=== PATIENT | female | born 1950 | race Caucasian/White ===

== ENCOUNTER 2021-06-19 14:40 | Emergency (ER) | payer MEDICARE, OTHER ==
[2021-06-19] MEDS ORDERED: Meclizine 25 MG Tab PO ONE (14:48)
[2021-06-19] MEDS ORDERED: Ondansetron 4 MG Tab.DIS PO ONE (14:49)
[2021-06-19 14:52] VITALS: BP 127/70; PULSE 76
[2021-06-19] MEDS ORDERED: Promethazine 25 MG/ML SDV IM ONE (15:28)
[2021-06-19 15:32] LABS: ANION GAP 8.1 meq/L (7-15); CHLORIDE,CL 106 mmol/L (98-107); SODIUM,NA 141 mmol/L (136-145)
[2021-06-19] MEDS ORDERED: Sodium Chloride 0.9% 500 ML IV SCH (16:00)
[2021-06-19] MEDS ORDERED: Sodium Chloride 0.9% 10 ML Syringe FLUSH PRN (16:04)
--- NOTE | 2021-06-19 16:53 | EDM.PDOC ---
ED HPI GENERAL MEDICAL PROBLEM - General Chief Complaint: General Stated Complaint: dizzy Time Seen by Provider: 06/19/21 15:10 Source of Information: Reports: Patient History Limitations: Reports: No Limitations - History of Present Illness INITIAL COMMENTS - FREE TEXT/NARRATIVE: Patient comes in with complaint of vertigo. Has had it in the past (not recently) but never this severe. Was seen by PCP yesterday who recommended Flonase. Also went to chiropractor to see if adjusting neck would help. Nothing has improved the vertigo. Worse this morning. Now has nausea and emesis with attacks. Denies other acute changes during ROS. No recent trauma/head injury/med changes/new supplements/illness. - Related Data Allergies Allergy/AdvReac Type Severity Reaction Status Date / Time Influenza Virus Vaccines Allergy Nausea and Verified 06/19/21 14:42 Vomiting Sulfa (Sulfonamide Allergy Hives Verified 06/19/21 14:42 Antibiotics) Home Meds: Home Meds ALPRAZolam [Alprazolam] 0.5 mg PO Q6HR PRN 03/09/16 [History] Aspirin [Ecotrin EC] 81 mg PO BEDTIME 03/09/16 [History] Blood Sugar Diagnostic [Onetouch Ultra Test Strip] 1 ea MISC DAILY 03/09/16 [History] Clopidogrel Bisulfate [Clopidogrel] 75 mg PO BEDTIME 03/09/16 [History] Lisinopril [Prinivil] 2.5 mg PO BEDTIME 03/09/16 [History] Metoprolol Succinate [Toprol XL 50mg] 50 mg PO BEDTIME 03/09/16 [History] Cyclobenzaprine [Flexeril] 10 mg PO TID PRN 04/16/16 [History] Ergocalciferol (Vitamin D2) [Vitamin D] 400 unit PO DAILY 04/16/16 [History] Multivitamin [Multi-Vitamin Daily] 1 each PO DAILY 04/16/16 [History] Naproxen 500 mg PO BID PRN 04/16/16 [History] RABEprazole Sodium [Aciphex] 20 mg PO BEDTIME 04/16/16 [History] atorvaSTATin [Lipitor] 80 mg PO BEDTIME 04/16/16 [History] Meclizine [Antivert] 25 mg PO Q6H PRN #40 tab 06/19/21 [Rx] Promethazine [Phenergan] 25 mg PO Q6H PRN #20 tab 06/19/21 [Rx] Past Medical History HEENT History: Reports: Allergic Rhinitis, Cataract, Impaired Vision, Other (See Below) Other HEENT History: start of the cataract, wears glasses Cardiovascular History: Reports: CAD, High Cholesterol, Hypertension, UT, Stents, Other (See Below) Other Cardiovascular History: UT in 2009 with PTCA/stent x3 at [facility] Respiratory History: Reports: None Gastrointestinal History: Reports: Chronic Constipation, Gastritis, GERD, Hemorrhoids, Helicobacter Pylori, Hiatal Hernia, PUD, Other (See Below) Other Gastrointestinal History: Peptic ulcer secondary to stress at age 21 Genitourinary History: Reports: None BASE ENGINEER History: Reports: Fibroids Other BASE ENGINEER History: Menopause at age 45 Musculoskeletal History: Reports: Arthritis, Back Pain, Chronic, Fracture, Neck Pain, Chronic, Osteoarthritis, Other (See Below) Other Musculoskeletal History: Left ankle fracture in 1984 Neurological History: Reports: None Psychiatric History: Reports: Anxiety, Depression Endocrine/Metabolic History: Reports: Diabetes, Type II, Other (See Below) Other Endocrine/Metabolic History: AODM-diet controlled Immunologic History: Reports: None Oncologic (Cancer) History: Reports: None - Infectious Disease History Infectious Disease History: Reports: C-Difficile, Chicken Pox, Measles, R heumatic Fever - Past Surgical History Head Surgeries/Procedures: Reports: None HEENT Surgical History: Reports: Adenoidectomy, Tonsillectomy, Other (See Below) Other HEENT Surgeries/Procedures: Tonsillectomy and adenoidectomy at age 6 Cardiovascular Surgical History: Reports: Coronary Artery Stent, Percutaneous Transluminal Angioplasty Other Cardiovascular Surgeries/Procedures: PTCA/stent x3 in 2009 at [facility] Respiratory Surgical History: Reports: None GI Surgical History: Reports: None Female Surgical History: Reports: None Endocrine Surgical History: Reports: None Neurological Surgical History: Reports: None Musculoskeletal Surgical History: Reports: None Oncologic Surgical History: Reports: None Dermatological Surgical History: Reports: None - Past Imaging History Past Imaging History: Reports: Mammogram (Last March 2015), Ultrasound (Pelvic ultrasound on 04/21/11) Social & Family History - Tobacco Use Tobacco Use Status *Q: Current Every Day Tobacco User Years of Tobacco use: 50 Packs/Tins Daily: 1.5 - Caffeine Use Caffeine Use: Reports: None - Recreational Drug Use Recreational Drug Use: No - Living Situation & Occupation Living situation: Reports: , with Family Occupation: Retired ED ROS GENERAL - Review of Systems Review Of Systems: See Below Constitutional: Reports: Decreased Appetite. Denies: Fever, Weakness, Night Sweats, Diaphoresis HEENT: Reports: Vertigo, Other (Feels like there is pressure/plugged in ears). Denies: Dental Pain, Ear Discharge, Ear Pain, Eye Discharge, Rhinitis, Sinus Problem, Throat Pain, Throat Swelling, Vision Change Respiratory: Reports: No Symptoms Cardiovascular: Reports: No Symptoms GI/Abdominal: Reports: Nausea, Vomiting. Denies: Abdominal Pain, Constipation, Diarrhea, Hematemesis, Hematochezia : Reports: No Symptoms Musculoskeletal: Reports: Other (no acute changes from baseline) Skin: Reports: No Symptoms Neurological: Reports: Dizziness, Difficulty Walking (dizziness). Denies: Confusion, Headache, Numbness, Paresthesia, Seizure, Syncope, Tingling, Trouble Speaking, Weakness, Change in Speech Psychiatric: Reports: No Symptoms Hematologic/Lymphatic: Reports: No Symptoms ED EXAM, GENERAL - Physical Exam Exam: See Below Exam Limited By: No Limitations General Appearance: Alert, Other (uncomfortable, holds head straight and avoids moving it) Eye Exam: Bilateral Eye: EOMI, PERRL Ears: Normal External Exam, Normal Canal, Hearing Grossly Normal, Normal TMs Ear Exam: Bilateral Ear: Auricle Normal, Canal Normal, TM normal Nose: No: Nasal Deformity, Nasal Swelling, Nasal Drainage Throat/Mouth: Normal Lips, Normal Voice, No Airway Compromise Head: Atraumatic, Normocephalic Neck: Normal Inspection, Supple, Non-Tender, Full Range of Motion Respiratory/Chest: No Respiratory Distress, Lungs Clear, Normal Breath Sounds, No Accessory Muscle Use Cardiovascular: Regular Rate, Rhythm, No Murmur GI/Abdominal: Soft, Non-Tender, No Distention (Female) Exam: Deferred Rectal (Female) Exam: Deferred Back Exam: No: CVA Tenderness (L), CVA Tenderness (R), Muscle Spasm Extremities: Normal Range of Motion, Non-Tender, Normal Capillary Refill Neurological: Alert, Oriented, CN II-XII Intact, Normal Cognition, No Motor/Sensory Deficits Psychiatric: Anxious Skin Exam: Warm, Dry, Intact, Normal Color Course - Vital Signs Last Recorded V/S: Last Vital Signs Temp 36.4 C 06/19/21 14:40 Pulse 76 06/19/21 14:40 Resp 18 06/19/21 14:40 BP 127/70 06/19/21 14:40 Pulse Ox 95 06/19/21 14:40 - Orders/Labs/Meds Orders: Active Orders 24 hr Category Date Time Status Consult to Physical Therapy [PT Evaluation and Cons 06/19/21 15:36 Active Treatment] [CONS] Routine Head wo Cont [CT] Stat Exams 06/19/21 15:33 Ordered Sodium Chloride 0.9% [Normal Saline] 500 ml Med 06/19/21 16:00 Active IV .BOLUS Sodium Chloride 0.9% [Saline Flush] Med 06/19/21 16:04 Active 10 ml FLUSH ASDIRECTED PRN Medication Orders Sodium Chloride (Normal Saline) 500 mls @ 500 mls/hr IV .BOLUS KIRTI Last Admin: 06/19/21 16:05 Dose: 500 mls/hr Documented by: LIAM Sodium Chloride (Sodium Chloride 0.9% 10 Ml Syringe) 10 ml FLUSH ASDIRECTED PRN PRN Reason: TKO Last Admin: 06/19/21 16:04 Dose: 10 ml Documented by: LIAM Labs: Laboratory Tests 06/19/21 06/19/21 06/19/21 Range/Units 15:03 15:03 15:30 WBC 8.3 (4.0-10.2) K/uL RBC 5.16 H (3.77-5.09) M/uL Hgb 15.7 H (11.7-15.5) g/dL Hct 48.0 H (34.0-46.0) % MCV 93.0 (84.0-98.0) fL MCH 30.4 (28.2-33.3) pg MCHC 32.7 (31.7-36.0) g/dL RDW 14.2 H (11.2-14.1) % Plt Count 255 (150-350) K/uL Neut % (Auto) 66.6 (45.0-80.0) % Lymph % (Auto) 25.1 (10.0-50.0) % [place] % (Auto) 5.6 (2.0-14.0) % Eos % (Auto) 2.3 (0.0-5.0) % Baso % (Auto) 0.4 (0.0-2.0) % Neut # (Auto) 5.55 (1.40-7.00) K/uL Lymph # (Auto) 2.09 (0.50-3.50) K/uL [place] # (Auto) 0.47 (0.00-1.00) K/uL Eos # (Auto) 0.19 (0.00-0.50) K/uL Baso # (Auto) 0.03 (0.00-0.20) K/uL Sodium 141 (136-145) mmol/L Potassium 4.0 (3.5-5.1) mmol/L Chloride 106 (98-107) mmol/L Carbon Dioxide 26.9 (21.0-32.0) mmol/L Anion Gap 8.1 (7-15) meq/L BUN 5 L (7-18) mg/dL Creatinine 0.82 (0.51-1.17) mg/dL Est Cr Clr Drug Dosing 50.49 mL/min Estimated GFR (MDRD) > 60 mL/min Glucose 127 H (70-99) mg/dL Calcium 9.0 (8.5-10.1) mg/dL Magnesium 2.4 (1.8-2.4) mg/dL Total Bilirubin 0.3 (0.2-1.0) mg/dL AST 24 (15-37) U/L ALT 54 (12-78) U/L Alkaline Phosphatase 126 H (46-116) IU/L Total Protein 7.3 (6.4-8.2) g/dL Albumin 3.2 L (3.4-5.0) g/dL Specimen Type Urincc Urine Color Yellow Urine Appearance Clear Urine pH 7.5 (5.0-9.0) Ur Specific [place] 1.015 (1.005-1.030) Urine Protein Negative (NEGATIVE) mg/dL Urine Glucose (UA) Negative (NEGATIVE) mg/dL Urine Ketones Negative (NEGATIVE) mg/dL Urine Occult Blood Negative (NEGATIVE) Urine Nitrite Negative (NEGATIVE) Urine Bilirubin Negative (NEGATIVE) Urine Urobilinogen 0.2 (0.2-1.0) E.U./dL Ur Leukocyte Esterase Negative (NEGATIVE) Urine RBC 0-5 /HPF Urine WBC 0-5 /HPF Ur Epithelial Cells Few /LPF Urine Bacteria Few (NONE TO FEW) /HPF Meds: Medications Generic Name Dose Route Start Last Admin Trade Name Mercedes PRN Reason Stop Dose Admin Sodium Chloride 500 mls @ 500 mls/hr 06/19/21 16:00 06/19/21 16:05 Normal Saline IV 500 mls/hr .BOLUS KIRTI Administration Sodium Chloride 10 ml 06/19/21 16:04 06/19/21 16:04 Sodium Chloride 0.9% 10 Ml Syringe FLUSH 10 ml ASDIRECTED PRN Administration TKO Discontinued Medications Generic Name Dose Route Start Last Admin Trade Name Fredaniel PRN Reason Stop Dose Admin Meclizine HCl 25 mg 06/19/21 14:48 06/19/21 14:56 Meclizine 25 Mg Tab PO 06/19/21 14:49 25 mg ONETIME ONE Administration Ondansetron HCl 4 mg 06/19/21 14:49 06/19/21 14:55 Ondansetron 4 Mg Tab.Dis PO 06/19/21 14:50 4 mg ONETIME ONE Administration Promethazine HCl 25 mg 06/19/21 15:28 06/19/21 15:57 Promethazine 25 Mg/Ml Sdv IM 06/19/21 15:29 25 mg ONETIME ONE Administration - Re-Assessments/Exams Free Text/Narrative Re-Assessment/Exam: 06/19/21 17:03 unable to elicit nystagmus due to patient not wanting to move around/move head. PT contacted to perform vestibular maneuver eval and was able to elicit nystagmus. Labs requested. Patient given Meclizine and Phenergan. Some improvement noted after PT visit. Patient able to move head and neck where before she avoided any movement at all. We did discuss obtaining a baseline CT to rule out unlikely causes of severe vertigo intracranially. Patient unable to tolerate laying down and scan cancelled. Labs unremarkable. Vital signs stable. Plan at this time is to let the patient return home. Rx for Meclizine and Phenergan. Precautions reviewed. To follow up for recheck if things do not improve over the weekend or if she has sudden worsening. Patient agreeable with plan. Has cousin that can help her out at home. Departure - Departure Time of Disposition: 16:53 Disposition: Home, Self-Care 01 Condition: Good Clinical Impression: Vertigo - Discharge Information *PRESCRIPTION DRUG MONITORING PROGRAM REVIEWED*: Not Applicable *COPY OF PRESCRIPTION DRUG MONITORING REPORT IN PATIENT ANTHONY: Not Applicable Prescriptions: Meclizine [Antivert] 25 mg PO Q6H PRN #40 tab PRN Reason: Dizziness Promethazine [Phenergan] 25 mg PO Q6H PRN #20 tab PRN Reason: Nausea Instructions: Vertigo, Benign Positional Vertigo Referrals: Teri Prater PA-C [Primary Care Provider] - Forms: ED Department Discharge Additional Instructions: Take it easy and see if this improves over time/next few days. Follow up for recheck if things worsen or new neuro changes develop. Take the Meclizine for the spins and the Phenergan for the nausea. Make follow up PT appointment for further treatments. Sepsis Event Note (ED) - Focused Exam Vital Signs: Vital Signs Temp Pulse Resp BP Pulse Ox 06/19/21 14:40 36.4 C 76 18 127/70 95 - My Orders Last 24 Hours: My Active Orders 06/19/21 15:33 Head wo Cont [CT] Stat 06/19/21 15:36 Consult to Physical Therapy [PT Evaluation and Treatment] [CONS] Routine 06/19/21 16:00 Sodium Chloride 0.9% [Normal Saline] 500 ml IV .BOLUS 06/19/21 16:04 Sodium Chloride 0.9% [Saline Flush] 10 ml FLUSH ASDIRECTED PRN - Assessment/Plan Last 24 Hours: My Active Orders 06/19/21 15:33 Head wo Cont [CT] Stat 06/19/21 15:36 Consult to Physical Therapy [PT Evaluation and Treatment] [CONS] Routine 06/19/21 16:00 Sodium Chloride 0.9% [Normal Saline] 500 ml IV .BOLUS 06/19/21 16:04 Sodium Chloride 0.9% [Saline Flush] 10 ml FLUSH ASDIRECTED PRN
== END 2021-06-19 18:03 | disposition home or self-care (01) ==
LOC: LL.ED 14:40
DX: R42 Dizziness and giddiness (principal); I25.10 Atherosclerotic heart disease of native coronary artery without angina pectoris; E78.00 Pure hypercholesterolemia, unspecified; I10 Essential (primary) hypertension; I25.2 Old myocardial infarction; K21.9 Gastro-esophageal reflux disease without esophagitis; E11.9 Type 2 diabetes mellitus without complications; Z95.5 Presence of coronary angioplasty implant and graft; Z88.7 Allergy status to serum and vaccine; Z72.0 Tobacco use; Z88.2 Allergy status to sulfonamides; Z79.899 Other long term (current) drug therapy; Z79.82 Long term (current) use of aspirin; Z79.02 Long term (current) use of antithrombotics/antiplatelets
CPT/HCPCS: 36415; 80053; 81001; 83735; 85025; 96372; 99284; A9270; J2550; J7040

== ENCOUNTER 2021-11-11 13:33 | Emergency (ER) | payer MEDICARE, OTHER ==
[2021-11-11] MEDS ORDERED: Sodium Chloride 0.9% 10 ML Syringe FLUSH PRN (13:41)
[2021-11-11] MEDS ORDERED: Sodium Chloride 0.9% 1,000 ML IV ONE (14:20)
[2021-11-11] MEDS ORDERED: Ondansetron 4 MG/2 ML SDV IVPUSH ONE (14:21)
[2021-11-11 14:34] LABS: CHLORIDE,CL 99 mmol/L (98-107); SODIUM,NA 135 mmol/L (136-145)
[2021-11-11 14:36] LABS: ANION GAP 11.7 meq/L (7-15)
[2021-11-11 15:26] LABS: CORONAVIRUS COVID-19 NAA NEGATIVE (NEGATIVE); RESPIRATORY SYNCYTIAL VIR NAA NEGATIVE (NEGATIVE)
[2021-11-11 15:35] VITALS: BP 139/70; PULSE 109
== END 2021-11-11 17:05 | disposition home or self-care (01) ==
LOC: LL.ED 13:33
DX: R53.83 Other fatigue (principal); R11.0 Nausea; I25.10 Atherosclerotic heart disease of native coronary artery without angina pectoris; J44.9 Chronic obstructive pulmonary disease, unspecified; E11.9 Type 2 diabetes mellitus without complications; I10 Essential (primary) hypertension; I25.2 Old myocardial infarction; K21.9 Gastro-esophageal reflux disease without esophagitis; Z95.5 Presence of coronary angioplasty implant and graft; Z88.7 Allergy status to serum and vaccine; Z88.2 Allergy status to sulfonamides; Z79.82 Long term (current) use of aspirin; Z79.02 Long term (current) use of antithrombotics/antiplatelets; Z79.899 Other long term (current) drug therapy; Z72.0 Tobacco use; Z20.822 Contact with and (suspected) exposure to COVID-19
CPT/HCPCS: 0241U; 36415; 80053; 83605; 83735; 84484; 85025; 85379; 93005; 96374; 99283; J2405; J7030

== ENCOUNTER → 2022-07-07 | Emergency (ER) | payer MEDICARE, OTHER | LOC: LL.ED 16:29 | DX: M79.622 Pain in left upper arm (principal); W01.0XXA Fall on same level from slipping, tripping and stumbling without subsequent striking against object, initial encounter | CPT/HCPCS: 73060-LT; 99283 ==

== ENCOUNTER 2022-07-20 21:18 | Emergency (ER) | payer MEDICARE, OTHER ==
[2022-07-20] MEDS ORDERED: Aspirin 81 MG Tab.Chew ONE (21:28)
[2022-07-20] MEDS ORDERED: Sodium Chloride 0.9% 10 ML Syringe FLUSH PRN (21:36)
[2022-07-20] MEDS: Nitroglycerin 0.4 MG Tab.SL ONE ×3 (21:38→22:15)
[2022-07-20] MEDS ORDERED: Heparin Sodium 5,000 Units/ML Vial IVPUSH ONE (21:58)
[2022-07-20] MEDS ORDERED: Heparin Sodium/0.45% NaCl 500 ML IV SCH (22:00)
[2022-07-20] MEDS ORDERED: Clopidogrel 75 MG Tab PO ONE (22:03)
[2022-07-20] MEDS ORDERED: Tenecteplase 50 MG Kit IV ONE (22:04)
[2022-07-20 22:10] LABS: ANION GAP 10.6 meq/L (7-15)
[2022-07-20] MEDS ORDERED: Morphine 2 MG/ML SYRINGE IVPUSH ONE (22:29)
[2022-07-20] MEDS: Ondansetron 4 MG/2 ML SDV IVPUSH ONE ×2 (22:39→22:48)
[2022-07-21 00:03] VITALS: BP 161/88; PULSE 99
== END 2022-07-20 23:00 ==
LOC: LL.ED 21:18
DX: I21.3 ST elevation (STEMI) myocardial infarction of unspecified site (principal); I25.10 Atherosclerotic heart disease of native coronary artery without angina pectoris; E78.00 Pure hypercholesterolemia, unspecified; I10 Essential (primary) hypertension; E11.9 Type 2 diabetes mellitus without complications; E66.9 Obesity, unspecified; Z68.30 Body mass index [BMI] 30.0-30.9, adult; Z88.7 Allergy status to serum and vaccine; Z88.2 Allergy status to sulfonamides; Z79.899 Other long term (current) drug therapy; Z79.82 Long term (current) use of aspirin
CPT/HCPCS: 36415; 71045; 80053; 83605; 83880; 84484; 85025; 85379; 85610; 93005; 93010; 96365; 96375; 96376; 99284; 99285-25; A9270-GY; J1644; J2270; J2405; J3101

== ENCOUNTER 2022-12-09 18:39 | Observation (INO) | payer MEDICARE, OTHER ==
[2022-12-09] MEDS ORDERED: Lactated Ringers 1,000 ML IV ONE (19:12)
[2022-12-09] MEDS ORDERED: Haloperidol Lactate 5 MG/ML SDV IVPUSH ONE (19:13)
[2022-12-09] MEDS: Sodium Chloride 0.9% 10 ML Syringe FLUSH PRN (19:30)
[2022-12-09] MEDS ORDERED: Haloperidol Lactate 5 MG/ML SDV IM ONE (19:49)
[2022-12-09 20:01] LABS: CORONAVIRUS COVID-19 NAA NEGATIVE (NEGATIVE); RESPIRATORY SYNCYTIAL VIR NAA NEGATIVE (NEGATIVE)
[2022-12-09] MEDS ORDERED: oxyCODONE 5 MG Tab PO ONE (20:41)
[2022-12-09 21:16] LABS: CHLORIDE,CL 96 mmol/L (98-107); SODIUM,NA 131 mmol/L (136-145)
[2022-12-09 21:17] LABS: ANION GAP 10.3 meq/L (7-15); ESTIMATED GFR 78 mL/min (>=60)
[2022-12-09] MEDS ORDERED: Polyethylene Glycol 3350 Powder 17 GM Packet PO PRN (21:59)
[2022-12-09] MEDS ORDERED: Morphine 2 MG/ML SYRINGE IVPUSH PRN (21:59)
[2022-12-09] MEDS ORDERED: oxyCODONE 5 MG Tab PO PRN (21:59)
[2022-12-09] MEDS ORDERED: Acetaminophen 500 MG Tab PO PRN (21:59)
[2022-12-09] MEDS ORDERED: Haloperidol Lactate 5 MG/ML SDV IVPUSH PRN (22:04)
[2022-12-09] MEDS ORDERED: Meclizine 25 MG Tab PO PRN (22:05)
[2022-12-10 07:35] LABS: ANION GAP 12.2 meq/L (7-15)
[2022-12-10] MEDS ORDERED: buPROPion 150 MG Tab.SR PO SCH (08:00)
[2022-12-10] MEDS ORDERED: Cholecalciferol (Vitamin D3) 10 MCG Tab PO SCH (08:00)
[2022-12-10] MEDS ORDERED: Enoxaparin 40 MG/0.4 ML Syringe SUBCUT SCH (08:00)
[2022-12-10] MEDS: Sodium Chloride 0.9% 10 ML Syringe FLUSH PRN (08:03)
[2022-12-10] MEDS ORDERED: fentaNYL 50 MCG/ML SDV IVPUSH ONE ×3 (09:24→13:46)
[2022-12-10] MEDS ORDERED: ALPRAZolam 0.25 MG Tab PO PRN (09:24)
[2022-12-10] MEDS ORDERED: Pantoprazole 40 MG Vial IVPUSH ONE (13:46)
[2022-12-10 13:54] VITALS: BP 136/79; PULSE 117
[2022-12-10] MEDS ORDERED: Metoprolol Succinate 50 MG Tab.ER PO SCH (20:00)
[2022-12-10] MEDS ORDERED: atorvaSTATin 40 MG Tab PO SCH (20:00)
[2022-12-10] MEDS ORDERED: Clopidogrel 75 MG Tab PO SCH (20:00)
[2022-12-10] MEDS ORDERED: Lisinopril 10 MG Tab PO SCH (20:00)
== END 2022-12-10 14:15 ==
LOC: LL.ED 18:39 → LL.MS 20:50
PROVIDERS: ADMIT Hospitalist; ATTEND Emergency Medicine
DX: R11.0 Nausea (principal); D61.810 Antineoplastic chemotherapy induced pancytopenia; C50.912 Malignant neoplasm of unspecified site of left female breast; I10 Essential (primary) hypertension; E78.00 Pure hypercholesterolemia, unspecified; F41.9 Anxiety disorder, unspecified; F32.A Depression, unspecified; E66.9 Obesity, unspecified; E11.9 Type 2 diabetes mellitus without complications; M19.90 Unspecified osteoarthritis, unspecified site; M54.2 Cervicalgia; G89.29 Other chronic pain; K21.9 Gastro-esophageal reflux disease without esophagitis; F17.210 Nicotine dependence, cigarettes, uncomplicated; I25.10 Atherosclerotic heart disease of native coronary artery without angina pectoris; I25.2 Old myocardial infarction; Z20.822 Contact with and (suspected) exposure to COVID-19; Z88.2 Allergy status to sulfonamides; Z88.7 Allergy status to serum and vaccine; Z79.899 Other long term (current) drug therapy; Z79.82 Long term (current) use of aspirin; Z95.5 Presence of coronary angioplasty implant and graft; Z98.890 Other specified postprocedural states
CPT/HCPCS: 0241U; 36415; 80048; 80053; 83605; 83690; 83735; 85025; 85027; 93005; 96361; 96374; 99285-25; A9270-GY; C9113; J1630; J3010; J3490; J7120

== ENCOUNTER 2022-12-21 11:44 | Inpatient (IN) | payer MEDICARE, OTHER ==
[2022-12-21] MEDS ORDERED: Naloxone 0.4 MG/ML SDV IV PRN (17:56)
[2022-12-21] MEDS ORDERED: Ondansetron 4 MG Tab.DIS PO PRN (17:56)
[2022-12-21] MEDS ORDERED: Acetaminophen 325 MG Tab PO PRN (17:56)
[2022-12-21] MEDS ORDERED: Nitroglycerin 0.4 MG Tab.SL SL PRN (17:56)
[2022-12-21] MEDS ORDERED: Codeine/guaiFENesin 10-100 MG/5 ML Syrup 5 ML Cup PO PRN (17:56)
[2022-12-21] MEDS ORDERED: Sucralfate 1 GM Tab PO PRN (17:56)
[2022-12-21] MEDS ORDERED: Non-Formulary Medication 1 Each (Oxycodone [Oxycodone] 5 MG Tablet) PO PRN (17:56)
[2022-12-21] MEDS ORDERED: ALOE TOP PRN (17:56)
[2022-12-21] MEDS ORDERED: LIDOCAINE TOP PRN (17:56)
[2022-12-21] MEDS ORDERED: HYDROCORTISONE TOP PRN (17:56)
[2022-12-21] MEDS ORDERED: Albuterol 6.7 GM Inhaler INH PRN (17:56)
[2022-12-21] MEDS ORDERED: Benzonatate 100 MG Cap PO PRN (17:56)
[2022-12-21] MEDS ORDERED: Meclizine 25 MG Tab PO PRN (17:56)
[2022-12-21] MEDS ORDERED: Cyclobenzaprine 10 MG Tab PO PRN (17:56)
[2022-12-21] MEDS ORDERED: Famotidine 20 MG Tab PO PRN (17:56)
[2022-12-21] MEDS: Magnesium Hydroxide 400 MG/5 ML Susp 30 ML Cup PO PRN (18:44)
[2022-12-21] MEDS: ALPRAZolam 0.25 MG Tab PO PRN (19:44)
[2022-12-21] MEDS: Albuterol/Ipratropium 3.0-0.5 MG/3 ML Neb Soln INH SCH (19:44)
[2022-12-21] MEDS: Carvedilol 3.125 MG Tab PO SCH (19:44)
[2022-12-21] MEDS: atorvaSTATin 40 MG Tab PO SCH (19:45)
[2022-12-21] MEDS: Melatonin 3 MG Tab PO SCH (19:45)
[2022-12-22] MEDS ORDERED: BLOOD SUGAR DIAGNOSTIC MISC SCH (08:00)
[2022-12-22] MEDS ORDERED: Dexamethasone 2 MG Tab PO SCH (08:00)
[2022-12-22] MEDS: Spironolactone 25 MG Tab PO SCH ×2 (08:31→08:57)
[2022-12-22] MEDS: Carvedilol 3.125 MG Tab PO SCH ×2 (08:31→08:57)
[2022-12-22] MEDS: Fluconazole 200 MG Tab PO SCH ×2 (08:32→08:51)
[2022-12-22] MEDS: Aspirin 81 MG Tab.EC PO SCH (08:33)
[2022-12-22] MEDS: Albuterol/Ipratropium 3.0-0.5 MG/3 ML Neb Soln INH SCH (08:33)
[2022-12-22] MEDS: Folic Acid 1 MG Tab PO SCH (08:33)
[2022-12-22] MEDS: Multivitamin Tab PO SCH (08:34)
[2022-12-22] MEDS: Clopidogrel 75 MG Tab PO SCH (08:34)
[2022-12-22] MEDS: Cholecalciferol (Vitamin D3) 25 MCG Tab PO SCH (08:35)
[2022-12-22] MEDS: ALPRAZolam 0.25 MG Tab PO PRN ×2 (08:35→19:56)
[2022-12-22] MEDS: Thiamine 100 MG Tab PO SCH ×2 (11:43→11:56)
[2022-12-22] MEDS ORDERED: Mineral Oil/Petrolatum/Phenylephrine/Shark Liver Oil Oint 57 GM Tube RECTAL PRN (11:49)
[2022-12-22] MEDS: Menthol 10%/Methyl Salicylate 15% 85 GM Tube TOP PRN (18:18)
[2022-12-22] MEDS: Melatonin 3 MG Tab PO SCH (19:55)
[2022-12-22] MEDS: atorvaSTATin 40 MG Tab PO SCH (19:55)
[2022-12-22] MEDS: Pantoprazole 40 MG Tab.CR PO SCH (19:55)
[2022-12-23] MEDS: Clopidogrel 75 MG Tab PO SCH ×2 (08:00→19:09)
[2022-12-23] MEDS: Aspirin 81 MG Tab.EC PO SCH ×2 (08:00→19:08)
[2022-12-23] MEDS: Folic Acid 1 MG Tab PO SCH (08:52)
[2022-12-23] MEDS: Multivitamin Tab PO SCH (08:53)
[2022-12-23] MEDS: Cholecalciferol (Vitamin D3) 25 MCG Tab PO SCH (08:53)
[2022-12-23] MEDS: ALPRAZolam 0.25 MG Tab PO PRN (08:55)
[2022-12-23] MEDS: oxyCODONE 5 MG Tab PO PRN (14:58)
[2022-12-23] MEDS: Famotidine 20 MG Tab PO SCH (17:48)
[2022-12-23] MEDS: atorvaSTATin 40 MG Tab PO SCH (19:09)
[2022-12-23] MEDS: Pantoprazole 40 MG Tab.CR PO SCH (19:10)
[2022-12-23] MEDS: Gabapentin 300 MG Cap PO SCH (19:13)
[2022-12-23] MEDS: Menthol 10%/Methyl Salicylate 15% 85 GM Tube TOP PRN (19:14)
[2022-12-24] MEDS: Folic Acid 1 MG Tab PO SCH (07:51)
[2022-12-24] MEDS: Multivitamin Tab PO SCH (07:52)
[2022-12-24] MEDS: Cholecalciferol (Vitamin D3) 25 MCG Tab PO SCH (07:52)
[2022-12-24] MEDS: Famotidine 20 MG Tab PO SCH ×2 (07:52→17:24)
[2022-12-24] MEDS: ALPRAZolam 0.25 MG Tab PO PRN ×2 (07:54→17:26)
[2022-12-24] MEDS ORDERED: Aspirin 81 MG Tab.EC PO SCH (08:00)
[2022-12-24] MEDS: Prochlorperazine 5 MG Tab PO PRN (09:47)
[2022-12-24] MEDS: atorvaSTATin 40 MG Tab PO SCH (19:12)
[2022-12-24] MEDS: Aspirin 81 MG Tab.EC PO SCH (19:12)
[2022-12-24] MEDS: Clopidogrel 75 MG Tab PO SCH (19:13)
[2022-12-24] MEDS: Gabapentin 300 MG Cap PO SCH (19:14)
[2022-12-24] MEDS: Pantoprazole 40 MG Tab.CR PO SCH (19:14)
[2022-12-24] MEDS: Menthol 10%/Methyl Salicylate 15% 85 GM Tube TOP PRN (19:15)
[2022-12-25] MEDS: Famotidine 20 MG Tab PO SCH ×2 (08:48→17:54)
[2022-12-25] MEDS: ALPRAZolam 0.25 MG Tab PO PRN ×3 (09:06→21:44)
[2022-12-25] MEDS: oxyCODONE 5 MG Tab PO PRN ×2 (10:11→21:41)
[2022-12-25] MEDS: Menthol 10%/Methyl Salicylate 15% 85 GM Tube TOP PRN (10:27)
[2022-12-25] MEDS: Folic Acid 1 MG Tab PO SCH (11:52)
[2022-12-25] MEDS: Cholecalciferol (Vitamin D3) 25 MCG Tab PO SCH (11:53)
[2022-12-25] MEDS: Multivitamin Tab PO SCH (11:53)
[2022-12-25] MEDS: atorvaSTATin 40 MG Tab PO SCH (19:41)
[2022-12-25] MEDS: Clopidogrel 75 MG Tab PO SCH (19:43)
[2022-12-25] MEDS: Gabapentin 300 MG Cap PO SCH (19:43)
[2022-12-25] MEDS: Pantoprazole 40 MG Tab.CR PO SCH (19:44)
[2022-12-25] MEDS: Aspirin 81 MG Tab.EC PO SCH (19:47)
[2022-12-25] MEDS: Magnesium Hydroxide 400 MG/5 ML Susp 30 ML Cup PO PRN (19:53)
[2022-12-26] MEDS: Famotidine 20 MG Tab PO SCH ×2 (08:47→18:23)
[2022-12-26] MEDS: ALPRAZolam 0.25 MG Tab PO PRN ×2 (09:06→15:51)
[2022-12-26] MEDS: Folic Acid 1 MG Tab PO SCH (12:08)
[2022-12-26] MEDS: Multivitamin Tab PO SCH (12:09)
[2022-12-26] MEDS: Cholecalciferol (Vitamin D3) 25 MCG Tab PO SCH (12:09)
[2022-12-26] MEDS: Prochlorperazine 5 MG Tab PO PRN (13:25)
[2022-12-26] MEDS: Menthol 10%/Methyl Salicylate 15% 85 GM Tube TOP PRN (16:18)
[2022-12-26] MEDS: Aspirin 81 MG Tab.EC PO SCH (19:36)
[2022-12-26] MEDS: atorvaSTATin 40 MG Tab PO SCH (19:37)
[2022-12-26] MEDS: Gabapentin 300 MG Cap PO SCH (19:39)
[2022-12-26] MEDS: Pantoprazole 40 MG Tab.CR PO SCH (19:40)
[2022-12-26] MEDS: Clopidogrel 75 MG Tab PO SCH (19:40)
[2022-12-26] MEDS: Magnesium Hydroxide 400 MG/5 ML Susp 30 ML Cup PO PRN (19:41)
[2022-12-27] MEDS: ALPRAZolam 0.25 MG Tab PO PRN ×3 (06:30→19:43)
[2022-12-27] MEDS: Famotidine 20 MG Tab PO SCH ×2 (08:25→18:01)
[2022-12-27] MEDS: Menthol 10%/Methyl Salicylate 15% 85 GM Tube TOP PRN (10:58)
[2022-12-27] MEDS: Folic Acid 1 MG Tab PO SCH (12:54)
[2022-12-27] MEDS: Cholecalciferol (Vitamin D3) 25 MCG Tab PO SCH (12:55)
[2022-12-27] MEDS: Multivitamin Tab PO SCH (12:56)
[2022-12-27] MEDS: Aspirin 81 MG Tab.EC PO SCH (19:35)
[2022-12-27] MEDS: atorvaSTATin 40 MG Tab PO SCH (19:36)
[2022-12-27] MEDS: Gabapentin 300 MG Cap PO SCH (19:38)
[2022-12-27] MEDS: Clopidogrel 75 MG Tab PO SCH (19:39)
[2022-12-27] MEDS: Pantoprazole 40 MG Tab.CR PO SCH (19:40)
[2022-12-27] MEDS: Magnesium Hydroxide 400 MG/5 ML Susp 30 ML Cup PO PRN (19:41)
[2022-12-28] MEDS: Famotidine 20 MG Tab PO SCH (07:52)
[2022-12-28] MEDS: ALPRAZolam 0.25 MG Tab PO PRN (07:53)
[2022-12-28 08:42] VITALS: BP 126/74; PULSE 95
[2022-12-28] MEDS: Multivitamin Tab PO SCH (11:35)
[2022-12-28] MEDS: Cholecalciferol (Vitamin D3) 25 MCG Tab PO SCH (11:36)
[2022-12-28] MEDS: Folic Acid 1 MG Tab PO SCH (11:36)
== END 2022-12-28 13:43 | disposition left against medical advice (07) | DRG 948 ==
LOC: LL.SWG 14:59
PROVIDERS: ADMIT Emergency Medicine; ATTEND Emergency Medicine
DX: R53.81 Other malaise (principal); C34.91 Malignant neoplasm of unspecified part of right bronchus or lung; I71.40 Abdominal aortic aneurysm, without rupture, unspecified; F41.9 Anxiety disorder, unspecified; I25.10 Atherosclerotic heart disease of native coronary artery without angina pectoris; F32.A Depression, unspecified; E11.9 Type 2 diabetes mellitus without complications; K21.9 Gastro-esophageal reflux disease without esophagitis; E78.5 Hyperlipidemia, unspecified; I10 Essential (primary) hypertension; R40.0 Somnolence; E78.00 Pure hypercholesterolemia, unspecified; F17.210 Nicotine dependence, cigarettes, uncomplicated; E66.9 Obesity, unspecified; G89.29 Other chronic pain; M54.9 Dorsalgia, unspecified; M19.90 Unspecified osteoarthritis, unspecified site; Z95.5 Presence of coronary angioplasty implant and graft; Z98.890 Other specified postprocedural states; Z88.2 Allergy status to sulfonamides; Z85.3 Personal history of malignant neoplasm of breast; Z92.3 Personal history of irradiation; I25.2 Old myocardial infarction; Z88.7 Allergy status to serum and vaccine; Z79.82 Long term (current) use of aspirin; Z92.21 Personal history of antineoplastic chemotherapy
CPT/HCPCS: 82947; 92610-GN; 97110-GO; 97110-GP; 97163-GP; 97165-GO; 97530-GO; 97530-GP; 97535-GO; A9270-GY; Q0164